=== PATIENT | male | born 1975 | race African-American/Black ===

== ENCOUNTER 2016-07-31 11:01 | Emergency (ER) | payer MEDICAID, OTHER ==
[~2016-07-31] VITALS: Ht 167.6 cm; Wt 75.0 kg
[~2016-07-31 11:01] MED LIST: HYDR25TA
[2016-07-31] MEDS ORDERED: ACETAMINOPHEN 325MG TABLET PO ONE (12:30)
[2016-07-31] MEDS ORDERED: LIDOCAINE HCL 1% 20ML VIAL (Pyxis) INJ INFIL ONE (13:00)
[2016-07-31] MEDS ORDERED: CEFTRIAXONE SODIUM 1 G/VIAL IM ONE (13:00)
[2016-07-31 18:46] VITALS: BP 114/78
== END 2016-07-31 19:35 | disposition short-term general hospital (02) ==
LOC: ER 13:30
DX: L03.213 Periorbital cellulitis (principal); F12.10 Cannabis abuse, uncomplicated
CPT/HCPCS: 70486; 96372; 99285; J0696; J3490; Z7610

== ENCOUNTER 2019-03-14 14:17 | Emergency (ER) | payer MEDICAID ==
[~2019-03-14] VITALS: Ht 175.3 cm; Wt 82.0 kg
[2019-03-14 14:31] VITALS: BP 107/65
[2019-03-14] MEDS ORDERED: DEXAMETHASONE 10 MG/ML VIAL IM ONE (15:15)
[2019-03-14] MEDS ORDERED: ACETAMINOPHEN 325MG TABLET PO ONE (15:15)
== END 2019-03-14 16:37 | disposition home or self-care (01) ==
LOC: ER 14:17
DX: I88.9 Nonspecific lymphadenitis, unspecified (principal)
CPT/HCPCS: 87070; 87430; 96372; 99283; J1100